=== PATIENT | female | born 1955 | race Asian ===

== ENCOUNTER 2019-12-12 13:44 | Outpatient (REF) | payer OTHER, SELFPAY | END 2019-12-12 13:45 | disposition home or self-care (01) | LOC: HO.LAB 13:44 | PROVIDERS: Visit Provider Internal Medicine | DX: Z20.828 Contact with and (suspected) exposure to other viral communicable diseases (principal) | CPT/HCPCS: 87635 ==

== ENCOUNTER 2020-09-16 14:24 | Outpatient (REF) | payer OTHER, SELFPAY | END 2020-09-16 14:25 | disposition home or self-care (01) | LOC: HO.LAB 14:24 | PROVIDERS: Visit Provider Internal Medicine | DX: Z20.822 Contact with and (suspected) exposure to COVID-19 (principal) | CPT/HCPCS: C9803; U0003; U0005 ==

== ENCOUNTER 2021-06-26 08:58 | Outpatient (REF) | payer OTHER, SELFPAY ==
[2021-06-26 09:36] LABS: COVID-19 Test Negative (Negative)
== END 2021-06-26 08:59 | disposition home or self-care (01) ==
LOC: HO.LAB 08:58
PROVIDERS: Visit Provider Internal Medicine
DX: Z20.822 Contact with and (suspected) exposure to COVID-19 (principal)
CPT/HCPCS: 87635; C9803